=== PATIENT | male | born 1960 | race Caucasian/White ===

== ENCOUNTER 2016-06-27 09:19 | Observation (INO) | payer BC, OTHER ==
[2016-06-27 09:28] VITALS: BMI 25.7
--- NOTE | 2016-06-27 09:34 | PDOC ---
History of Present Illness - General Chief Complaint: Chest Pain Stated Complaint: CHEST PAIN, NUMBNESS/PAIN TO LT ARM Time Seen by Provider: 06/27/16 09:31 History Source: Patient Exam Limitations: No Limitations - History of Present Illness Initial Comments: 06/27/16 09:48 Patient is a 55 year old male cocaine user (last night), 1PPD smoker who presents to ED with chest pain. Patient states he has had 3-4 episodes of burning substernal chest pain over last week. He woke up this morning with 6/10 substernal burning pain, which now started radiating to his left arm. The pain usually lasts 45minutes to 1 hour and dissipates on its own. He states the pain is not preceded by exertion or increased physical activity. He states chest pain is usually accompanied by burping, gas and a nonproductive cough. Denies shortness of breath, abdominal pain, syncope, palpitations. Past History - Travel Traveled outside of the country in the last 30 days: No Close contact w/someone who was outside of country & ill: No - Past Medical History Allergies/Adverse Reactions: Allergies Allergy/AdvReac Type Severity Reaction Status Date / Time shellfish derived AdvReac Difficulty Verified 06/27/16 09:22 Breathing Home Medications: Ambulatory Orders NK [No Known Home Medication] 06/27/16 Other medical history: DENIES. - Family Disease History Family Disease History: Heart Disease: Father (Multiple men with DE history) - Psycho/Social/Smoking Cessation Hx Suicidal Ideation: No Smoking History: Current every day smoker Have you smoked in the past 12 months: Yes Number of Cigarettes Smoked Daily: 20 Information on smoking cessation initiated: No Hx Alcohol Use: Yes (heavy drinker "on weekends only") Drug/Substance Use Hx: Yes (cocaine (last used yesterday), denies IVDA) Substance Use Type: Cocaine Hx Substance Use Treatment: No Review of Systems - Review of Systems Able to Perform ROS?: Yes Is the patient limited Greenlandic proficient: No Constitutional: No: Chills, Fever, Loss of Appetite, Malaise HEENTM: No: Blurred Vision, Double Vision, Nose Congestion, Throat Pain Respiratory: Yes: Cough. No: Shortness of Breath, Productive cough Cardiac (ROS): Yes: Chest Pain, Chest Tightness. No: Irregular Heart Rate, Lightheadedness, Palpitations ABD/GI: No: Constipated, Diarrhea, Nausea, Vomiting, Abdominal cramping : No: Burning, Dysuria All Other Systems: Reviewed and Negative *Physical Exam - Vital Signs Last Vital Signs Temp Pulse Resp BP Pulse Ox 97.8 F 89 17 148/91 98 06/27/16 09:23 06/27/16 09:23 06/27/16 09:23 06/27/16 09:23 06/27/16 09:23 - Physical Exam General Appearance: Yes: Nourished, Appropriately Dressed HEENT: positive: EOMI, JABIER, Normal ENT Inspection, Pharynx Normal Neck: positive: Trachea midline, Normal Thyroid, Supple Respiratory/Chest: positive: Other (Diffuse end expiratory wheezes, no crackles noted). negative: Respiratory Distress, Accessory Muscle Use Cardiovascular: positive: Regular Rhythm, Regular Rate, S1, S2 Gastrointestinal/Abdominal: positive: Normal Bowel Sounds, Flat, Soft Musculoskeletal: positive: Normal Inspection Extremity: positive: Normal Inspection, Normal Range of Motion Integumentary: positive: Normal Color, Dry, Warm Neurologic: positive: senior manufacturing technician II-XII NML intact, Fully Oriented, Alert, Normal Mood/ Affect, Motor Strength 5/5 Heart Score/ECG Review - History History: Moderately suspicious - Electrocardiogram EKG: Normal - Age Age: 45-65 - Risk Factors Risk Factors Heart Score: Yes Hx Hypercholesterolemia, Yes Smoking History, Yes Positive family hx of cardiac disease Based on the list above the patient has:: >/=3 risk factors or Hx atherosclerotic disease - Troponin Troponin: </= normal limit - Score Heart Score - Total: 4 - ECG Impressions Normal ECG: Yes Comment:: 06/27/16 09:57 IMPRESSION: Normal sinus rhythm. 89bpm. QTc 435 ED Treatment Course - LABORATORY CBC & Chemistry Diagram: 06/27/16 10:20 06/27/16 10:20 Medical Decision Making - Medical Decision Making 06/27/16 09:57 Chest pain, need to r/o ACS. Patient HEART score is 4 (not including pending troponin) so will require admission/observation. Cardiac workup ordered including ECG, CXR, Troponins, Mag, lipid profile. Aspirin 162 chewable given. 06/27/16 11:02 First troponin negative. CXR without acute pathology. Will discuss case with hospitalist service as patient will require placement in telemetry observation for serial troponins & cardiac monitoring. 06/27/16 11:[address] in telemetry observation under admitting Dr Camargo. *DC/Admit/Observation/Transfer Diagnosis at time of Disposition: Chest pain, Cocaine abuse - Discharge Dispostion Admit: Yes
[2016-06-27] MEDS ORDERED: ASPIRIN 81 MG CHEWABLE TABLETS PO ONE (09:46)
[2016-06-27] MEDS ORDERED: ASPIRIN 81 MG CHEWABLE TABLETS ONE (10:04)
[2016-06-27 10:49] LABS: ALBUMIN 4.2 g/dl (3.4-5.0); ALK PHOS 85 U/L (45-117); ANION GAP 9 (8-16); BILIRUBIN,TOTAL 0.6 mg/dL (0.2-1.0); CALCIUM 9.1 mg/dL (8.5-10.1); CHOLESTEROL 185 mg/dL (50-200); CO2 26 mmol/L (21-32); CREATININE 0.9 mg/dL (0.7-1.3); GLUCOSE,RANDOM 95 mg/dL (74-106); LDL CHOLESTEROL (ONLY SJRH) 130 mg/dL (5-100); MAGNESIUM 2.5 mg/dL (1.8-2.4); SGOT/AST 22 U/L (15-37); SGPT/ALT 45 U/L (12-78); TROPONIN I < 0.02 ng/ml (0.00-0.05)
[2016-06-27 10:54] LABS: BASOPHIL 0.7 % (0-2.0); EOSINOPHIL 2.1 % (0-4.5); MCH 30.4 pg (25.7-33.7); MCHC 33.8 g/dl (32.0-35.9); MEAN CELL VOLUME 89.8 fl (80-96); MEAN PLT VOLUME 6.7 fl (7.5-11.1); NEUTROPHILS 64.4 % (42.8-82.8); PLATELET COUNT 234 K/MM3 (134-434); RDW 13.8 % (11.9-15.9); WHITE BLOOD COUNT 8.4 K/mm3 (4.0-10.0)
--- NOTE | 2016-06-27 10:57 | PDOC ---
Attending Attestation - Resident Resident Name: Rocco Norman - ED Attending Attestation I have performed the following: I have examined & evaluated the patient, The case was reviewed & discussed with the resident, I agree w/resident's findings & plan, Exceptions are as noted - HPI HPI: 55 yo M no PMH but history of smoking and cocaine use presents with chest pain. Pain is substernal, radiating to L arm at times, to R chest at other times. He last used cocaine last night, but states that the pain seems to occur independently of that. He denies SOB, leg swelling, N/V, sweating. Associated with sweating. - Physicial Exam PE: GENERAL: Awake, alert, and fully oriented, in no acute distress HEAD: No signs of trauma EYES: PERRLA, EOMI, sclera anicteric, conjunctiva clear ENT: Auricles normal inspection, hearing grossly normal, nares patent, oropharynx clear without exudates. Moist mucosa NECK: Normal ROM, supple, no lymphadenopathy, JVD, or masses LUNGS: Breath sounds equal, clear to auscultation bilaterally. No wheezes, and no crackles HEART: Regular rate and rhythm, normal S1 and S2, no murmurs, rubs or gallops ABDOMEN: Soft, nontender, normoactive bowel sounds. No guarding, no rebound. No masses EXTREMITIES: Normal range of motion, no edema. No clubbing or cyanosis. No cords, erythema, or tenderness NEUROLOGICAL: Cranial nerves II through XII grossly intact. Normal speech, normal gait SKIN: Warm, Dry, normal turgor, no rashes or lesions noted. - Medical Decision Making Pt with history of smoking, cocaine use, and family history of CAD, presenting with cp. Will require admission based on prior history and that he has had multiple episodes.
[2016-06-27 11:14] LABS: URINE MARIJUANA THC NEGATIVE ng/ml (CUTOFF=50)
[2016-06-27] MEDS ORDERED: PNEUMOC 13-VAL CONJ-DIP CRM/PF 0.5 ML DISP.SYRIN IM ONE (12:28)
[2016-06-27] MEDS ORDERED: ACETAMINOPHEN 325 MG TABLET (FP) PO PRN (13:15)
--- NOTE | 2016-06-27 13:18 | HP ---
[id number] old male with a history of 52.5 pack-year history of smoking and occasional cocaine use who presents to the ED complaining of one week of intermittent chest pain. The pain is substernal and also in his left arm, although he states that they are "not connected." The pain is associated with shortness of breath. It is burning in character and dull/pressure-like when it starts to subside. It is associated with burping/"gas". It tends to last for about 45 minutes at a time. It does not seem to be related to exertion, eating, or any other factor. ER course was notable for: (1) EKG: NSR at 89bpm (2) TNI <0.02 (3) CXR: no active pulmonary disease The patient reports a negative stress test 2 yrs ago. Recent Travel: None Smokin.5ppd x 35 yrs Alcohol: Occasional Drugs: Inhalational cocaine, last used last night Family History: Significant for father and paternal uncle with CAD/[place]/CABG in their early 50s Allergies shellfish derived Adverse Reaction (Verified 06/27/16 09:22) Difficulty Breathing HOME MEDICATIONS: Home Medications Medication Instructions Recorded NK [No Known Home Medication] 06/27/16 REVIEW OF SYSTEMS CONSTITUTIONAL: Absent: fever, chills, diaphoresis, generalized weakness, malaise, loss of appetite, weight change HEENT: Absent: rhinorrhea, nasal congestion, throat pain, throat swelling, difficulty swallowing, mouth swelling, ear pain, eye pain, visual changes CARDIOVASCULAR: See HPI RESPIRATORY: Dry cough, shortness of breath when chest pain occurs Absent: orthopnea, wheezing, stridor, hemoptysis GASTROINTESTINAL: Absent: abdominal pain, abdominal distension, nausea, vomiting, diarrhea, constipation, melena, hematochezia GENITOURINARY: Absent: dysuria, frequency, urgency, hesitancy, hematuria, flank pain, genital pain MUSCULOSKELETAL: Absent: myalgia, arthralgia, joint swelling, back pain, neck pain SKIN: Absent: rash, itching, pallor HEMATOLOGIC/IMMUNOLOGIC: Absent: easy bleeding, easy bruising, lymphadenopathy, frequent infections ENDOCRINE: Absent: unexplained weight gain, unexplained weight loss, heat intolerance, cold intolerance NEUROLOGIC: Absent: headache, focal weakness or paresthesias, dizziness, unsteady gait, seizure, mental status changes, bladder or bowel incontinence PSYCHIATRIC: Absent: anxiety, depression, suicidal or homicidal ideation, hallucinations. PHYSICAL EXAMINATION Vital Signs - 24 hr 06/27/16 06/27/16 12:04 12:46 Temperature 97.8 F 97.8 F Pulse Rate 89 70 Respiratory 16 18 Rate Blood Pressure 148/91 118/70 O2 Sat by Pulse 98 Oximetry (%) GENERAL: Awake, alert, and fully oriented, in no acute distress. HEAD: Normal with no signs of trauma. EYES: Pupils equal, round and reactive to light, extraocular movements intact, sclera anicteric, conjunctiva clear. No lid lag. EARS, NOSE, THROAT: Ears normal, nares patent, oropharynx clear without exudates. Moist mucous membranes. NECK: Normal range of motion, supple without lymphadenopathy, JVD, or masses. LUNGS: Breath sounds equal, clear to auscultation bilaterally. No wheezes, and no crackles. No accessory muscle use. HEART: Regular rate and rhythm, normal S1 and S2 without murmur, rub or gallop. ABDOMEN: Soft, nontender, not distended, normoactive bowel sounds, no guarding, no rebound, no masses. No hepatomegaly or splenomegaly. MUSCULOSKELETAL: Normal range of motion at all joints. No bony deformities or tenderness. No CVA tenderness. UPPER EXTREMITIES: 2+ pulses, warm, well-perfused. No cyanosis. No clubbing. Cap refill <2 seconds. No peripheral edema. LOWER EXTREMITIES: 2+ pulses, warm, well-perfused. No calf tenderness. No peripheral edema. NEUROLOGICAL: Cranial nerves II-XII intact. Normal speech. Normal gait. PSYCHIATRIC: Cooperative. Good eye contact. Appropriate mood and affect. SKIN: Warm, dry, normal turgor, no rashes or lesions noted. ASSESSMENT/PLAN: 55 year old male placed in observation for chest pain. Problem List - Problem (1) Chest pain Assessment/Plan: -Monitor on telemetry -Serial troponins to rule out WI -ASA 81mg daily -Echocardiogram -Cardiology consultation- anticipate stress testing -Dietary/exercise counseling for borderline ADL Code(s): R07.9 - CHEST PAIN, UNSPECIFIED Qualifiers: Chest pain type: unspecified Qualified Code(s): R07.9 - Chest pain, unspecified (2) Cocaine abuse Assessment/Plan: -Calcium channel anthony for possible vasospasm Code(s): F14.10 - COCAINE ABUSE, UNCOMPLICATED (3) Family history of premature coronary artery disease Assessment/Plan: -As above Code(s): Z82.49 - FAMILY HX OF ISCHEM HEART DIS AND OTH DIS OF THE CIRC SYS (4) Tobacco abuse Assessment/Plan: -Declines nicotine replacement therapy Code(s): Z72.0 - TOBACCO USE (5) DVT prophylaxis Assessment/Plan: -Moderate risk; Lovenox 40mg sq daily -Early ambulation Code(s): EOP0065 - Visit type - Emergency Visit Emergency Visit: Yes ED Registration Date: 06/27/16 Care time: The patient presented to the Emergency Department on the above date and was hospitalized for further evaluation of their emergent condition. - New Patient This patient is new to me today: Yes Date on this admission: 06/27/16 - Critical Care Critical Care patient: No
--- NOTE | 2016-06-27 13:26 | CON.CARD ---
Consult Consult Specialty:: Cardiology Referred by:: Hospitalist Medicine Reason for Consultation:: Chest pain - History of Present Illness Chief Complaint: Chest pain History of Present Illness: Patient is a 55 year old male cocaine user (last night with positive UDS), 1.5 PPD smoker who presents to ED with complaint of chest pain. Patient states he has had 3-4 episodes of burning substernal chest pain over last week. He woke up this morning with 6/10 substernal burning pain, which started radiating to his left arm. The pain usually lasts 45 minutes to 1 hour and dissipates on its own. He reports belching which did not relieve sxs, denies exertional component , associated dyspnea, near or true syncope, palpitations, orthopnea, PND or LE edema. - History Source History Provided By: Patient Limitations to Obtaining History: No Limitations - Alcohol/Substance Use Hx Alcohol Use: Yes (heavy drinker "on weekends only") - Smoking History Smoking history: Current every day smoker Have you smoked in the past 12 months: Yes Aproximately how many cigarettes per day: 20 Home Medications - Allergies Allergies/Adverse Reactions: Allergies Allergy/AdvReac Type Severity Reaction Status Date / Time shellfish derived AdvReac Difficulty Verified 06/27/16 09:22 Breathing - Home Medications Home Medications: Ambulatory Orders NK [No Known Home Medication] 06/27/16 Review of Systems - Review of Systems Cardiovascular: reports: Chest Pain Vital Signs: Vital Signs Temperature 97.8 F 06/27/16 12:46 Pulse Rate 70 06/27/16 12:46 Respiratory Rate 18 06/27/16 12:46 Blood Pressure 118/70 06/27/16 12:46 O2 Sat by Pulse Oximetry (%) 98 06/27/16 12:04 Constitutional: Yes: No Distress, Calm Neck: Yes: Supple Respiratory: Yes: Regular, CTA Bilaterally Gastrointestinal: Yes: Normal Bowel Sounds, Soft Cardiovascular: Yes: Regular Rate and Rhythm JVD: No Carotid Bruit: No Heart Sounds: Yes: S1, S2 Edema: No - Other Data Labs, Other Data: INR, PTT INR 1.00 (0.82-1.09) 06/27/16 10:20 Pending Ejection Fraction %: LVEF > or = 40 % Imaging - Results Chest X-ray: Report Reviewed (NAD) Problem List - Problems (1) Chest pain Code(s): R07.9 - CHEST PAIN, UNSPECIFIED Qualifiers: Chest pain type: unspecified Qualified Code(s): R07.9 - Chest pain, unspecified (2) Cocaine abuse Code(s): F14.10 - COCAINE ABUSE, UNCOMPLICATED (3) Family history of premature coronary artery disease Code(s): Z82.49 - FAMILY HX OF ISCHEM HEART DIS AND OTH DIS OF THE CIRC SYS (4) Tobacco abuse Code(s): Z72.0 - TOBACCO USE Assessment/Plan 06/27/2016 Echo: Normal biventricular size and fxn, mild TR, tr-mild MR 1. Chest pain syndrome 2. Cocaine and tobacco abuse 3. Family history of premature CAD P:1. Ruling out for HI, serial EKG 2. ASA 81 qd, Cardizem CD 120 qd 3. ETT once ruled out for HI 4. Abstinence from cocaine and tobacco abuse 5. Thank you for consultative opportunity
[2016-06-27] MEDS ORDERED: PNEUMOCOCCAL 23 VACCINE 0.5 ML VIAL IM ONE (16:00)
[2016-06-27] MEDS ORDERED: INFLUENZA VACCINE 45 MCG/0.5 ML (MDV 16-17) IM ONE (16:00)
[2016-06-28 07:51] LABS: BASOPHIL 1.2 % (0-2.0); EOSINOPHIL 4.1 % (0-4.5); MCH 30.8 pg (25.7-33.7); MCHC 33.9 g/dl (32.0-35.9); MEAN CELL VOLUME 90.8 fl (80-96); MEAN PLT VOLUME 6.8 fl (7.5-11.1); NEUTROPHILS 48.8 % (42.8-82.8); PLATELET COUNT 199 K/MM3 (134-434); WHITE BLOOD COUNT 6.3 K/mm3 (4.0-10.0)
[2016-06-28 08:22] LABS: ALBUMIN 3.5 g/dl (3.4-5.0); ANION GAP 7 (8-16); CALCIUM 8.9 mg/dL (8.5-10.1); CO2 28 mmol/L (21-32); GLUCOSE,RANDOM 95 mg/dL (74-106); MAGNESIUM 2.3 mg/dL (1.8-2.4)
[2016-06-28 08:35] LABS: ALK PHOS 78 U/L (45-117); BILIRUBIN,TOTAL 0.7 mg/dL (0.2-1.0); CREATININE 1.1 mg/dL (0.7-1.3); SGOT/AST 12 U/L (15-37); SGPT/ALT 35 U/L (12-78); THYROID STIMULATING HORMONE 0.91 uIU/ml (0.358-3.74); TOT PROT 6.3 g/dl (6.4-8.2); TROPONIN I < 0.02 ng/ml (0.00-0.05)
[2016-06-28 09:26] VITALS: BP 127/86; PULSE 68; TEMP 98
[2016-06-28] MEDS ORDERED: ENOXAPARIN NA (PORCINE) 40 MG/0.4 ML DISP.SYRIN SQ SCH (10:00)
[2016-06-28] MEDS ORDERED: ASPIRIN COATED 81 MG TABLET.EC PO SCH (10:00)
--- NOTE | 2016-06-28 12:51 | DS ---
Physical Exam: SUBJECTIVE: Patient seen and examined OBJECTIVE: Vital Signs Period Temp Pulse Resp BP Sys/Euceda Pulse Ox Last 24 Hr 97.5 F-98.2 F 57-74 18-18 105-127/58-86 98-100 PHYSICAL EXAM GENERAL: The patient is awake, alert, and fully oriented, in no acute distress. HEAD: Normal with no signs of trauma. EYES: PERRL, extraocular movements intact, sclera anicteric, conjunctiva clear. ENT: Ears normal, nares patent, oropharynx clear without exudates, moist mucous membranes. NECK: Trachea midline, full range of motion, supple. LUNGS: Breath sounds equal, clear to auscultation bilaterally, no wheezes, no crackles, no accessory muscle use. HEART: Regular rate and rhythm, S1, S2 without murmur, rub or gallop. ABDOMEN: Soft, nontender, nondistended, normoactive bowel sounds, no guarding, no rebound, no hepatosplenomegaly, EXTREMITIES: 2+ pulses, warm, well-perfused, no edema. NEUROLOGICAL: Cranial nerves II through XII grossly intact. Normal speech, gait not observed. PSYCH: Normal mood, normal affect. SKIN: Warm, dry, normal turgor, no rashes or lesions noted. LABS Laboratory Results - last 24 hr 06/28/16 06/28/16 06/28/16 05:55 05:55 05:55 WBC 6.3 RBC 4.76 Hgb 14.7 Hct 43.3 MCV 90.8 MCHC 33.9 RDW 14.0 Plt Count 199 MPV 6.8 L Neutrophils % 48.8 D Lymphocytes % 31.8 D Monocytes % 14.1 H Eosinophils % 4.1 D Basophils % 1.2 Sodium 144 Potassium 4.2 Chloride 109 H Carbon Dioxide 28 Anion Gap 7 L BUN 15 Creatinine 1.1 D Creat Clearance w eGFR > 60 Random Glucose 95 Hemoglobin A1c % 5.1 Calcium 8.9 Magnesium 2.3 Total Bilirubin 0.7 AST 12 L D ALT 35 D Alkaline Phosphatase 78 Creatine Kinase 60 Troponin I < 0.02 Total Protein 6.3 L Albumin 3.5 TSH 0.91 HOSPITAL COURSE: Date of Admission:06/27/16 Date of Discharge: 06/28/16 Discharge Summary Reason For Visit: CHEST PAIN,COCAINE ABUSE Current Active Problems Chest pain (Acute) Cocaine abuse (Acute) DVT prophylaxis (Acute) Family history of premature coronary artery disease (Acute) Tobacco abuse (Acute) - Instructions Referrals: Lynda Pratt [Primary Care Provider] - - Home Medications Comprehensive Discharge Medication List: Ambulatory Orders NK [No Known Home Medication] 06/27/16
--- NOTE | 2016-06-28 13:36 | DS ---
Physical Exam: SUBJECTIVE: Patient seen and examined Patient refuses to stay in the hospital, high risk patient. Denies any chest pain or palpitations. OBJECTIVE: Vital Signs Temperature 98 F 06/28/16 09:25 Pulse Rate 68 06/28/16 09:25 Respiratory Rate 18 06/28/16 09:25 Blood Pressure 127/86 06/28/16 09:25 O2 Sat by Pulse Oximetry (%) 98 06/28/16 09:53 PHYSICAL EXAM GENERAL:The patient is awake, alert, and fully oriented, in no acute distress. HEAD: Normal with no signs of trauma. EYES: PERRL, extraocular movements intact, sclera anicteric, conjunctiva clear. ENT: Ears normal, oropharynx clear without exudates, moist mucous membranes. NECK: Trachea midline, full range of motion, supple. LUNGS: Breath sounds equal, clear to auscultation bilaterally, no wheezes, no crackles, no accessory muscle use. HEART: Regular rate and rhythm, S1, S2 without murmur, rub or gallop. ABDOMEN: Soft, nontender, nondistended, normoactive bowel sounds, no guarding, no rebound, no masses. EXTREMITIES: 2+ pulses, warm, well-perfused, no edema. NEUROLOGICAL: Cranial nerves II through XII grossly intact. Normal speech. PSYCH: Normal mood, normal affect. SKIN: Warm, dry, normal turgor, no rashes or lesions noted. LABS Laboratory Results - last 24 hr 06/28/16 06/28/16 06/28/16 05:55 05:55 05:55 WBC 6.3 RBC 4.76 Hgb 14.7 Hct 43.3 MCV 90.8 MCHC 33.9 RDW 14.0 Plt Count 199 MPV 6.8 L Neutrophils % 48.8 D Lymphocytes % 31.8 D Monocytes % 14.1 H Eosinophils % 4.1 D Basophils % 1.2 Sodium 144 Potassium 4.2 Chloride 109 H Carbon Dioxide 28 Anion Gap 7 L BUN 15 Creatinine 1.1 D Creat Clearance w eGFR > 60 Random Glucose 95 Hemoglobin A1c % 5.1 Calcium 8.9 Magnesium 2.3 Total Bilirubin 0.7 AST 12 L D ALT 35 D Alkaline Phosphatase 78 Creatine Kinase 60 Troponin I < 0.02 Total Protein 6.3 L Albumin 3.5 TSH 0.91 HOSPITAL COURSE: Date of Admission:06/27/16 Date of Discharge: 06/28/16 Patient is a high risk patient , smokes 1.5pack cigarettes, cocaine, family fhx of cad with hi uncles and his father. Discussed with Dr.Toni Feliz, patient is a high risk and needs a stress test, patient does not want to stay , will sign against medical advice. Asked the patient to continue taking aspirin, abstinence from smoking cigarette and cocaine use. Patient signed against medical advice. 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 Explained all the risk , comatose, heart transplant even . Patient understands and signed AMA papers. Minutes to complete discharge: 35 Discharge Summary Reason For Visit: CHEST PAIN,COCAINE ABUSE Current Active Problems Chest pain (Acute) Cocaine abuse (Acute) DVT prophylaxis (Acute) Family history of premature coronary artery disease (Acute) Tobacco abuse (Acute) Condition: Guarded - Instructions Diet, Activity, Other Instructions: follow up with [facility] Friend for stress test needs to quit smoking and cocaine use Referrals: Juarez Feliz MD [Staff Physician] - Lynda Pratt [Primary Care Provider] - - Home Medications Comprehensive Discharge Medication List: Ambulatory Orders NK [No Known Home Medication] 06/27/16 This patient is new to me today: Yes Date on this admission: 06/28/16 Emergency Visit: Yes ED Registration Date: 06/27/16 Care time: The patient presented to the Emergency Department on the above date and was hospitalized for further evaluation of their emergent condition. Critical Care patient: No - Discharge Referral Referred to [facility] No
[2016-06-28 14:07] LABS: TROPONIN I < 0.02 ng/ml (0.00-0.05)
--- NOTE | 2016-06-28 16:54 | EKG ---
Test Reason : Blood Pressure : / mmHG Vent. Rate : 071 BPM Atrial Rate : 071 BPM P-R Int : 142 ms QRS Dur : 084 ms QT Int : 384 ms P-R-T Axes : 062 -12 027 degrees QTc Int : 417 ms NORMAL SINUS RHYTHM NORMAL ECG WHEN COMPARED WITH ECG OF 28-JUN-2016 08:47, NO SIGNIFICANT CHANGE WAS FOUND Confirmed by MILADYS SÁNCHEZ MD ([id number]) on 06/28/2016 4:54:09 PM Referred By: Zohra RABAGO Confirmed By:MILADYS SÁNCHEZ MD
--- NOTE | 2016-06-28 17:38 | EKG ---
Test Reason : Blood Pressure : / mmHG Vent. Rate : 066 BPM Atrial Rate : 066 BPM P-R Int : 128 ms QRS Dur : 084 ms QT Int : 396 ms P-R-T Axes : 038 001 033 degrees QTc Int : 415 ms NORMAL SINUS RHYTHM CANNOT RULE OUT ANTERIOR INFARCT , AGE UNDETERMINED ABNORMAL ECG WHEN COMPARED WITH ECG OF 27-JUN-2016 09:23, NO SIGNIFICANT CHANGE WAS FOUND Confirmed by MILADYS SÁNCHEZ MD ([id number]) on 06/28/2016 5:37:39 PM Referred By: QUETA Confirmed By:MILADYS SÁNCHEZ MD
--- NOTE | 2016-07-02 13:50 | EKG ---
Test Reason : Blood Pressure : / mmHG Vent. Rate : 089 BPM Atrial Rate : 089 BPM P-R Int : 146 ms QRS Dur : 080 ms QT Int : 358 ms P-R-T Axes : 065 008 041 degrees QTc Int : 435 ms POOR DATA QUALITY, INTERPRETATION MAY BE ADVERSELY AFFECTED NORMAL SINUS RHYTHM NORMAL ECG NO PREVIOUS ECGS AVAILABLE Confirmed by KAZ BECKMAN MD ([id number]) on 07/02/2016 1:50:23 PM Referred By: Confirmed By:KAZ BECKMAN MD
== END 2016-06-28 14:48 | disposition left against medical advice (07) ==
LOC: JER 09:19 → JERBED 11:05 → J4W 12:11
PROVIDERS: ADMIT Internal Medicine; ATTEND Internal Medicine
DX: R07.89 Other chest pain (principal); F14.10 Cocaine abuse, uncomplicated; F17.210 Nicotine dependence, cigarettes, uncomplicated
CPT/HCPCS: 36415; 71010-TC; 80053; 80061; 80307; 82550; 83036; 83721; 83735; 84443; 84484; 85025; 85610; 90732; 93005; 93010; 93306-TC; 99285-25; G0009; G0378; Q2037

== ENCOUNTER 2016-12-27 18:29 | Emergency (ER) | payer BC ==
[2016-12-27 18:35] VITALS: BP 147/92; PULSE 91; TEMP 99; BMI 27.1
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
[2016-12-27] MEDS ORDERED: IBUPROFEN 600 MG TABLET (FP) PO ONE ×2 (19:35→19:37)
[2016-12-27] MEDS ORDERED: DIPHTH,PERTUSS(ACELL),TET 0.5 ML DISP.SYRIN IM ONE (19:46)
== END 2016-12-27 20:00 | disposition home or self-care (01) ==
LOC: FER 18:29
PROC: 3E0234Z Introduction of Serum, Toxoid and Vaccine into Muscle, Percutaneous Approach (ICD-10-PCS; principal; 2016-12-27)
PROC: 2W3JX1Z Immobilization of Right Finger using Splint (ICD-10-PCS; 2016-12-27)
DX: S62.014A Nondisplaced fracture of distal pole of navicular [scaphoid] bone of right wrist, initial encounter for closed fracture (principal); W01.0XXA Fall on same level from slipping, tripping and stumbling without subsequent striking against object, initial encounter; Y93.89 Activity, other specified; S00.81XA Abrasion of other part of head, initial encounter; Y92.511 Restaurant or cafe as the place of occurrence of the external cause; Y99.0 Civilian activity done for income or pay; S00.83XA Contusion of other part of head, initial encounter
CPT/HCPCS: 73110-TC-RT; 73130-TC-RT; 90715; 99284-25

== ENCOUNTER 2016-12-31 13:34 | Day surgery (SDC) | payer BC ==
[2016-12-30 15:07] VITALS: BMI 27.1
[2016-12-31] MEDS ORDERED: oxyCODONE HCL 5 MG TABLET PO PRN (13:56)
[2016-12-31] MEDS ORDERED: ONDANSETRON 4 MG/2 ML VIAL IVPUSH PRN (13:56)
[2016-12-31] MEDS ORDERED: LACTATED RINGERS SOLUTION 1,000 ML IV SCH (14:00)
[2016-12-31] MEDS ORDERED: BUPIVACAINE HCL/PF 2.5 MG/ML - 30 ML VIAL IJ ONE (15:06)
[2016-12-31] MEDS ORDERED: PROPOFOL 20 ML ONE ×6 (16:03→16:48)
[2016-12-31] MEDS ORDERED: ceFAZolin SODIUM 1 GM VIAL ONE (16:17)
[2016-12-31] MEDS ORDERED: SUCCINYLCHOLINE CHLORIDE 200 MG/10 ML VIAL ONE (16:38)
[2016-12-31] MEDS ORDERED: BUPIVACAINE HCL/PF 0.25% (2.5MG/ML) 10 ML VIAL IJ ONE (16:59)
[2016-12-31 18:55] VITALS: BP 135/84; PULSE 75; TEMP 97.9
--- NOTE | 2017-01-01 09:26 | OP ---
DATE OF OPERATION: 12/31/2016 PREOPERATIVE DIAGNOSIS: Right scaphoid fracture. POSTOPERATIVE DIAGNOSIS: Right scaphoid fracture. PROCEDURE: Right scaphoid open reduction and internal fixation. SURGEON: Hans Alexander MD ANESTHESIA: General. COMPLICATIONS: None. ESTIMATED BLOOD LOSS: Minimal. [employer] SUPPORT SPECIALIST: LIZETH Clarke INDICATION FOR PROCEDURE: The patient is a 56-year-old male with the above finding, indicated for operative treatment. Risks, benefits, and alternatives were discussed with the patient at length. Proper informed consent was obtained. DESCRIPTION OF PROCEDURE: After proper identification of the patient and the correct operative site, the patient was brought to the operating room and placed supine on the operating table. All prominences were well padded. General anesthesia provided by the anesthesiologist adequate for procedure. Right upper extremity was prepped and draped in the usual sterile fashion. A well-padded tourniquet was placed as well as a sterile prep. Esmarch bandage was used to exsanguinate the right upper extremity. Tourniquet was inflated to 250 mmHg. Right upper extremity was found in a thumb finger trap. Using liver fluoroscopy and percutaneous entry, the distal pole of the scaphoid was identified, and a guidewire was placed in the distal pole, across the fracture site, into the proximal pole of the scaphoid in a central position. A small incision was then made over the guidewire, and the tissue was developed for repair. A reamer was placed over the guidewire, and an Acutrak II mini screw was placed over the guidewire, obtaining central purchase throughout the scaphoid, across the fracture site. A size 20 screw was used. This provided secure stable fixation and anatomic position of the scaphoid. Multiple x-rays were taken to confirm reduction and placement and sizing of hardware. Wound was irrigated with saline and repaired with a 5-0 nylon suture. Sterile dressings and a splint were placed. Patient was reversed from anesthesia and brought to recovery room in stable condition. He tolerated the procedure well. Seb Alejandra, the health education assistant, was integral throughout this procedure. Procedure could not have been performed without a skilled operative assessment. Geri TRENT/[id number]
== END 2016-12-31 18:15 | disposition home or self-care (01) ==
LOC: FASU 13:34
PROVIDERS: ATTEND Orthopaedic Surgery Hand Surgery
PROC: 0PSM04Z Reposition Right Carpal with Internal Fixation Device, Open Approach (ICD-10-PCS; principal; 2016-12-31 16:01)
DX: S62.024A Nondisplaced fracture of middle third of navicular [scaphoid] bone of right wrist, initial encounter for closed fracture (principal); X58.XXXA Exposure to other specified factors, initial encounter; Y93.9 Activity, unspecified; Y92.9 Unspecified place or not applicable
CPT/HCPCS: 73130-TC-RT; 94760

== ENCOUNTER 2017-12-31 09:48 | Day surgery (SDC) | payer OTHER ==
[2017-12-30 14:53] VITALS: BMI 27.8
[2017-12-31] MEDS ORDERED: LIDOCAINE HCL/PF 2% SDV 5ML VIAL ONE (10:14)
[2017-12-31] MEDS ORDERED: PROPOFOL 20 ML ONE ×3 (10:14)
--- NOTE | 2017-12-31 10:34 | PROC ---
Endoscopy Procedure Endoscopy procedure completed. Please see scanned procedure report.
[2017-12-31 10:59] VITALS: TEMP 97.7
[2017-12-31 11:48] VITALS: BP 107/69; PULSE 67
== END 2017-12-31 11:49 | disposition home or self-care (01) ==
LOC: JASU-ENDO 09:48
PROVIDERS: ATTEND Internal Medicine Gastroenterology
PROC: 0DJD8ZZ Inspection of Lower Intestinal Tract, Via Natural or Artificial Opening Endoscopic (ICD-10-PCS; principal; 2017-12-31 11:00)
DX: Z12.11 Encounter for screening for malignant neoplasm of colon (principal)

== ENCOUNTER 2018-04-24 03:44 | Emergency (ER) | payer OTHER ==
[2018-04-24 04:15] VITALS: BMI 27.1
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
[2018-04-24 04:50] LABS: BASO % 0.7 % (0-2.0); EOS % 1.8 % (0-4.5); HEMOGLOBIN 17.2 GM/dL (11.7-16.9); LYMPH % 30.3 % (8-40); MCH 31.2 pg (25.7-33.7); MCHC 35.2 g/dl (32.0-35.9); MEAN CELL VOLUME 88.5 fl (80-96); MEAN PLT VOLUME 6.8 fl (7.5-11.1); MONO % 8.9 % (3.8-10.2); NEUT % 58.3 % (42.8-82.8); PLATELET COUNT 352 K/MM3 (134-434); RBC 5.54 M/mm3 (4.00-5.60); RDW 13.9 % (11.9-15.9); WHITE BLOOD COUNT 15.5 K/mm3 (4.0-10.0)
[2018-04-24 05:04] LABS: INR 0.87 (0.83-1.09); PROTHROMBIN TIME (PATIENT) 10.3 SEC (9.7-13.0)
[2018-04-24 05:07] LABS: ACTIVATED PTT 23.4 SECONDS (25.2-36.5)
[2018-04-24 05:22] LABS: ALBUMIN 4.4 g/dl (3.4-5.0); ALK PHOS 204 U/L (45-117); ANION GAP 12 MMOL/L (8-16); BILIRUBIN,TOTAL 0.4 mg/dL (0.2-1); BLOOD UREA NITROGEN 13 mg/dL (7-18); CALCIUM 8.8 mg/dL (8.5-10.1); CHLORIDE 101 mmol/L (98-107); CO2 25 mmol/L (21-32); CREATININE 1.1 mg/dL (0.55-1.3); GLUCOSE,RANDOM 150 mg/dL (74-106); POTASSIUM 3.2 mmol/L (3.5-5.1); SGOT/AST 137 U/L (15-37); SGPT/ALT 185 U/L (13-61); SODIUM 137 mmol/L (136-145); TOT PROT 8.5 g/dl (6.4-8.2)
[2018-04-24] MEDS ORDERED: ACETAMINOPHEN 1000 MG/100 ML VIAL (NON FORMULARY) IVPB ONE (05:51)
[2018-04-24] MEDS ORDERED: ACETAMINOPHEN INJECTION 100 ML IVPB ONE (05:57)
[2018-04-24] MEDS ORDERED: MAGNESIUM SULF 50% (8.12 MEQ/2 ML-1 GM VIAL) IVPB ONE (07:15)
[2018-04-24] MEDS ORDERED: POTASSIUM CHLORIDE TABS 20 MEQ TABLET.ER (FP) PO ONE ×2 (07:15→07:27)
[2018-04-24 07:26] VITALS: TEMP 97.8
[2018-04-24] MEDS ORDERED: MAGNESIUM 1GM/D5W - 2 GM/200 ML IVPB IVPB ONE (07:28)
[2018-04-24] MEDS ORDERED: ONDANSETRON 4 MG/2 ML VIAL IVPUSH ONE (07:51)
[2018-04-24] MEDS ORDERED: ONDANSETRON 4 MG/2 ML VIAL ONE (07:57)
[2018-04-24 08:04] VITALS: PULSE 85
--- NOTE | 2018-04-24 08:38 | PDOC ---
*Physical Exam - Vital Signs Last Vital Signs Temp Pulse Resp BP Pulse Ox 97.8 F 85 21 H 122/79 89 L 04/24/18 07:25 04/24/18 08:03 04/24/18 08:03 04/24/18 08:03 04/24/18 08:03 ED Treatment Course - LABORATORY CBC & Chemistry Diagram: 04/24/18 04:25 04/24/18 04:25 - ADDITIONAL ORDERS Additional order review: Laboratory Results 04/24/18 04/24/18 04/24/18 04:25 04:25 04:25 PT with INR 10.30 INR 0.87 PTT (Actin FS) 23.4 L Sodium 137 Potassium 3.2 L Chloride 101 Carbon Dioxide 25 Anion Gap 12 BUN 13 Creatinine 1.1 Creat Clearance w eGFR > 60 Random Glucose 150 H Calcium 8.8 Total Bilirubin 0.4 AST 137 H ALT 185 H Alkaline Phosphatase 204 H Total Protein 8.5 H Albumin 4.4 Alcohol, Quantitative 246.3 H Blood Type A POSITIVE Antibody Screen Negative 04/24/18 04:25 RBC 5.54 MCV 88.5 MCHC 35.2 RDW 13.9 MPV 6.8 L Neutrophils % 58.3 Lymphocytes % 30.3 Monocytes % 8.9 Eosinophils % 1.8 Basophils % 0.7 - Medications Given in the ED: ED Medications Discontinued Medications Generic Name Dose Route Start Last Admin Trade Name Eleazar PRN Reason Stop Dose Admin Acetaminophen 1,000 mg 04/24/18 05:51 04/24/18 07:25 Ofirmev Injection - IVPB 04/24/18 05:52 Not Given ONCE ONE Magnesium Sulfate 2 gm 04/24/18 07:15 04/24/18 08:03 Magnesium Sulfate IVPB 04/24/18 07:16 2 gm ONCE ONE Administration Ondansetron HCl 4 mg 04/24/18 07:51 04/24/18 08:03 Zofran Injection IVPUSH 04/24/18 07:52 4 mg ONCE ONE Administration Potassium Chloride 40 meq 04/24/18 07:15 04/24/18 08:03 K-Dur - PO 04/24/18 07:16 40 meq ONCE ONE Administration Medical Decision Making - Medical Decision Making 04/24/18 08:37 spoke with Lu at [facility] who will call back with the accepting Doctor in OMFS and ER attending. [facility] will set up transport 04/24/18 10:[address] Cooper (senior ER attending) who states [facility] does not deal with sig traumas. [facility] trauma already denied pt 04/24/18 10:18 [facility] transfer center states they do not accept transfers for ENT/OMFS on the weekends. Spoke with Dr. Adamson who is this pts pcp and would like him transferred WIll contact [facility] Spoke with Dr. Rojas from ENT at [facility] who agrees to have the pt transferred to the emergency room to be seen. Dr. Rojas is the Accepting Provider for this pt *DC/Admit/Observation/Transfer Diagnosis at time of Disposition: Fracture of mastoid bone Qualifiers: Encounter type: initial encounter Fracture type: closed Qualified Code(s): S02.19XA - Other fracture of base of skull, initial encounter for closed fracture Clavicular fracture Qualifiers: Encounter type: initial encounter Clavicle location: unspecified part of clavicle Fracture type: closed Laterality: right - Discharge Dispostion Disposition: TRANSFER ACUTE CARE/OTHER HOSP Condition at time of disposition: Stable Decision to Admit order: No - Referrals - Patient Instructions - Post Discharge Activity
[2018-04-24 11:45] VITALS: BP 122/79
== END 2018-04-24 11:44 | disposition short-term general hospital (02) ==
LOC: JER 03:44
PROC: 3E033GC Introduction of Other Therapeutic Substance into Peripheral Vein, Percutaneous Approach (ICD-10-PCS; principal; 2018-04-24)
PROC: 3E033GC Introduction of Other Therapeutic Substance into Peripheral Vein, Percutaneous Approach (ICD-10-PCS; 2018-04-24)
PROC: 3E033NZ Introduction of Analgesics, Hypnotics, Sedatives into Peripheral Vein, Percutaneous Approach (ICD-10-PCS; 2018-04-24)
DX: S02.19XA Other fracture of base of skull, initial encounter for closed fracture (principal); S42.001A Fracture of unspecified part of right clavicle, initial encounter for closed fracture; W18.39XA Other fall on same level, initial encounter; Y93.89 Activity, other specified; Y92.480 Sidewalk as the place of occurrence of the external cause; Y99.8 Other external cause status
CPT/HCPCS: 36415; 70450-TC; 70486-TC; 71045-TC-FY; 72125-TC; 80053; 80307; 85025; 85610; 85730; 86850; 86900; 86901; 96374; 96375; 99285-25

== ENCOUNTER 2020-04-20 15:50 | Inpatient (IN) | payer OTHER ==
[2020-04-20 16:05] VITALS: BMI 26.6
[2020-04-20] MEDS ORDERED: ONDANSETRON 4 MG/2 ML VIAL IVPUSH ONE (17:18)
[2020-04-20] MEDS ORDERED: SODIUM CHLORIDE 0.9% 500 ML INFUS.BAG IV ONE (17:18)
[2020-04-20] MEDS ORDERED: morphine CARPU-JECT 4 MG/1 ML DISP.SYRIN IVPUSH ONE (17:18)
[2020-04-20] MEDS ORDERED: FAMOTIDINE 20 MG/50 ML IVPB 20 MG/50 ML MG IVPB ONE ×2 (17:19→17:25)
[2020-04-20] MEDS ORDERED: ONDANSETRON 4 MG/2 ML VIAL ONE (17:25)
[2020-04-20] MEDS ORDERED: morphine SULFATE 4 MG/ML VIAL ONE (17:25)
[2020-04-20 17:30] LABS: BASO % 0.4 % (0-2.0); EOS % 2.6 % (0-4.5); HEMATOCRIT 45.1 % (35.4-49); HEMOGLOBIN 15.2 GM/dL (11.7-16.9); LYMPH % 11.3 % (8-40); MCH 31.1 pg (25.7-33.7); MCHC 33.6 g/dl (32.0-35.9); MEAN CELL VOLUME 92.6 fl (80-96); MEAN PLT VOLUME 6.5 fl (7.5-11.1); NEUT % 79.7 % (42.8-82.8); PLATELET COUNT 241 K/MM3 (134-434); RBC 4.87 M/mm3 (4.00-5.60); RDW 14.5 % (11.9-15.9); WHITE BLOOD COUNT 8.7 K/mm3 (4.0-10.0)
[2020-04-20 17:37] LABS: INR 0.92 (0.83-1.09); PROTHROMBIN TIME (PATIENT) 11.4 SEC (9.7-13.0)
[2020-04-20 17:52] LABS: CHLORIDE 107 mmol/L (98-107); POTASSIUM 3.7 mmol/L (3.5-5.1); SODIUM 140 mmol/L (136-145)
[2020-04-20 17:55] LABS: ALBUMIN 4.1 g/dl (3.4-5.0); ANION GAP 5 MMOL/L (8-16); CALCIUM 9.5 mg/dL (8.5-10.1); CO2 28 mmol/L (21-32); GLUCOSE,RANDOM 128 mg/dL (74-106); LIPASE 119 U/L (73-393); MAGNESIUM 2.3 mg/dL (1.8-2.4)
[2020-04-20 17:58] LABS: CREATININE 1.1 mg/dL (0.55-1.3); SGOT/AST 16 U/L (15-37); SGPT/ALT 36 U/L (13-61)
[2020-04-20 18:00] LABS: BILIRUBIN,TOTAL 0.8 mg/dL (0.2-1); TOT PROT 7.2 g/dl (6.4-8.2)
[2020-04-20 18:01] LABS: ALK PHOS 89 U/L (45-117)
[2020-04-20] MEDS ORDERED: CEFTRIAXONE 1,000 MG in DEXTROSE 5%-WATER - 50 ML IVPB ONE (19:29)
[2020-04-20] MEDS ORDERED: HYDROmorphone HCL CARPU-JECT 2 MG/1 ML DISP.SYRIN IVPUSH ONE (19:36)
[2020-04-20] MEDS ORDERED: CEFTRIAXONE 1 GM/50 ML BAG ONE (19:37)
[2020-04-20] MEDS ORDERED: HYDROmorphone HCl 2 MG/ML VIAL ONE (20:00)
[2020-04-20] MEDS ORDERED: MORPHINE SULFATE 2 MG/ML VIAL IVPUSH PRN (21:19)
[2020-04-20] MEDS ORDERED: morphine SULFATE 4 MG/ML VIAL IVPUSH PRN (21:19)
[2020-04-20] MEDS ORDERED: ACETAMINOPHEN 1000 MG/100 ML VIAL (NON FORMULARY) IVPB PRN (21:19)
[2020-04-20] MEDS ORDERED: RANOLAZINE E.R. 500 MG TABLET (FP) ONE (22:40)
[2020-04-20] MEDS: RANOLAZINE E.R. 1,000 MG TABLET (FP) PO SCH (22:50)
[2020-04-20] MEDS: ATORVASTATIN CA 20 MG TABLET (FP) PO SCH (22:50)
[2020-04-20] MEDS: LABETALOL HCL 100 MG TABLET (FP) PO SCH (22:50)
[2020-04-21 08:02] LABS: BASO % 0.4 % (0-2.0); EOS % 3.4 % (0-4.5); HEMATOCRIT 36.7 % (35.4-49); HEMOGLOBIN 12.4 GM/dL (11.7-16.9); LYMPH % 27.5 % (8-40); MCHC 33.8 g/dl (32.0-35.9); MEAN CELL VOLUME 91.8 fl (80-96); MEAN PLT VOLUME 6.7 fl (7.5-11.1); MONO % 11.8 % (3.8-10.2); NEUT % 56.9 % (42.8-82.8); PLATELET COUNT 207 K/MM3 (134-434); RBC 3.99 M/mm3 (4.00-5.60); RDW 14.4 % (11.9-15.9); WHITE BLOOD COUNT 6.6 K/mm3 (4.0-10.0)
[2020-04-21 08:13] LABS: POTASSIUM 3.6 mmol/L (3.5-5.1)
[2020-04-21 08:18] LABS: CALCIUM 8.1 mg/dL (8.5-10.1); INR 1.05 (0.83-1.09); PROTHROMBIN TIME (PATIENT) 12.7 SEC (9.7-13.0)
[2020-04-21 08:19] LABS: ALBUMIN 3.2 g/dl (3.4-5.0); BLOOD UREA NITROGEN 9.7 mg/dL (7-18); MAGNESIUM 2.2 mg/dL (1.8-2.4)
[2020-04-21 08:20] LABS: PHOSPHOROUS 3.5 mg/dL (2.5-4.9)
[2020-04-21 08:22] LABS: BILIRUBIN,TOTAL 1.4 mg/dL (0.2-1); TOT PROT 5.8 g/dl (6.4-8.2)
[2020-04-21] MEDS ORDERED: RANOLAZINE E.R. 500 MG TABLET (FP) ONE ×2 (09:13→20:50)
[2020-04-21] MEDS ORDERED: cefTRIAXone SODIUM 1 GM VIAL ONE (09:14)
[2020-04-21] MEDS ORDERED: DEXTROSE 5%-WATER - 50 ML IVPB ONE (09:14)
[2020-04-21] MEDS: LABETALOL HCL 100 MG TABLET (FP) PO SCH ×2 (09:30→21:57)
[2020-04-21] MEDS: CEFTRIAXONE 1 GM in DEXTROSE 5%-WATER - 50 ML IVPB SCH (09:30)
[2020-04-21] MEDS: RANOLAZINE E.R. 1,000 MG TABLET (FP) PO SCH ×2 (09:31→21:57)
[2020-04-21] MEDS ORDERED: PT OWN MED DRAWER 7, Y5N ONE ×3 (09:36→20:50)
[2020-04-21] MEDS: ENOXAPARIN NA (PORCINE) 40 MG/0.4 ML DISP.SYRIN SQ SCH (09:37)
[2020-04-21] MEDS: BUDESONIDE/FORMETEROL FUMARATE 160/4.5 mcg INHALER IH SCH (11:22)
[2020-04-21] MEDS: TETRAHYDROZOLINE HCL EYE DROPS OU SCH (21:57)
[2020-04-21] MEDS: ATORVASTATIN CA 20 MG TABLET (FP) PO SCH (21:57)
[2020-04-22] MEDS ORDERED: cefTRIAXone SODIUM 1 GM VIAL ONE (10:28)
[2020-04-22] MEDS ORDERED: RANOLAZINE E.R. 500 MG TABLET (FP) ONE ×2 (10:28→21:06)
[2020-04-22] MEDS ORDERED: DEXTROSE 5%-WATER - 50 ML IVPB ONE (10:29)
[2020-04-22] MEDS: ENOXAPARIN NA (PORCINE) 40 MG/0.4 ML DISP.SYRIN SQ SCH (10:32)
[2020-04-22] MEDS: RANOLAZINE E.R. 1,000 MG TABLET (FP) PO SCH ×2 (10:32→21:18)
[2020-04-22] MEDS: CEFTRIAXONE 1 GM in DEXTROSE 5%-WATER - 50 ML IVPB SCH (10:32)
[2020-04-22] MEDS: NICOTINE 21 MG/24 HOURS TOPICAL PATCH TD SCH (10:33)
[2020-04-22] MEDS: BUDESONIDE/FORMETEROL FUMARATE 160/4.5 mcg INHALER IH SCH (10:33)
[2020-04-22] MEDS: LABETALOL HCL 100 MG TABLET (FP) PO SCH ×2 (10:33→21:18)
[2020-04-22] MEDS: TETRAHYDROZOLINE HCL EYE DROPS OU SCH ×2 (10:34→21:18)
[2020-04-22] MEDS: ATORVASTATIN CA 20 MG TABLET (FP) PO SCH (21:17)
[2020-04-23] MEDS ORDERED: DEXTROSE 5%-WATER - 50 ML IVPB ONE (08:29)
[2020-04-23] MEDS ORDERED: cefTRIAXone SODIUM 1 GM VIAL ONE (08:29)
[2020-04-23] MEDS: LABETALOL HCL 100 MG TABLET (FP) PO SCH ×3 (08:53→21:25)
[2020-04-23] MEDS: NICOTINE 21 MG/24 HOURS TOPICAL PATCH TD SCH (09:58)
[2020-04-23] MEDS: ENOXAPARIN NA (PORCINE) 40 MG/0.4 ML DISP.SYRIN SQ SCH (09:58)
[2020-04-23] MEDS: RANOLAZINE E.R. 1,000 MG TABLET (FP) PO SCH ×2 (09:59→21:25)
[2020-04-23] MEDS: BUDESONIDE/FORMETEROL FUMARATE 160/4.5 mcg INHALER IH SCH (10:00)
[2020-04-23] MEDS: TETRAHYDROZOLINE HCL EYE DROPS OU SCH ×2 (10:01→21:26)
[2020-04-23] MEDS: CEFTRIAXONE 1 GM in DEXTROSE 5%-WATER - 50 ML IVPB SCH (10:39)
[2020-04-23] MEDS ORDERED: PROPOFOL 20 ML ONE ×3 (11:23)
[2020-04-23] MEDS ORDERED: MIDAZOLAM HCL 2 MG/2 ML SINGLE DOSE VIAL ONE (11:23)
[2020-04-23] MEDS ORDERED: ROCURONIUM BROMIDE 50 MG/5 ML SYRINGE ONE (11:24)
[2020-04-23] MEDS ORDERED: SUCCINYLCHOLINE CHLORIDE 200 MG/10 ML SYRINGE ONE (11:24)
[2020-04-23] MEDS ORDERED: ceFAZolin SODIUM 1 GM VIAL IVPB ONE (12:08)
[2020-04-23] MEDS ORDERED: fentaNYL CITRATE 250 MCG/5 ML VIAL ONE (12:35)
[2020-04-23] MEDS ORDERED: BUPIVACAINE HCL/PF 0.5% (5 MG/ML) 30 ML VIAL IJ ONE (13:07)
[2020-04-23] MEDS ORDERED: GLYCOPYRROLATE 0.2 MG/1 ML VIAL ONE ×2 (13:13)
[2020-04-23] MEDS ORDERED: NEOSTIGMINE METHYLSULFATE 0.5 MG/ML - 10 ML MDV ONE (13:13)
[2020-04-23] MEDS ORDERED: ONDANSETRON 4 MG/2 ML VIAL IVPUSH PRN ×2 (13:37→13:58)
[2020-04-23] MEDS ORDERED: PROMETHAZINE HCL 25 MG/1 ML VIAL IVPB PRN ×2 (13:37→13:58)
[2020-04-23] MEDS ORDERED: oxyCODONE HCL 5 MG TABLET PO PRN ×2 (13:37→13:58)
[2020-04-23] MEDS ORDERED: IBUPROFEN 600 MG TABLET (FP) PO PRN (13:51)
[2020-04-23] MEDS: ACETAMINOPHEN 500 MG TABLET (FP) PO SCH (15:10)
[2020-04-23] MEDS ORDERED: RANOLAZINE E.R. 500 MG TABLET (FP) ONE (21:24)
[2020-04-23] MEDS ORDERED: ATORVASTATIN CA 20 MG TABLET (FP) PO SCH (22:00)
[2020-04-24] MEDS: ACETAMINOPHEN 500 MG TABLET (FP) PO SCH ×2 (05:04→07:28)
[2020-04-24 07:56] VITALS: PULSE 72; TEMP 97.7
[2020-04-24 08:14] LABS: POTASSIUM 3.7 mmol/L (3.5-5.1)
[2020-04-24 08:17] LABS: HEMATOCRIT 36.9 % (35.4-49); HEMOGLOBIN 12.9 GM/dL (11.7-16.9); MCH 32.2 pg (25.7-33.7); MCHC 34.9 g/dl (32.0-35.9); MEAN PLT VOLUME 7.2 fl (7.5-11.1); PLATELET COUNT 208 K/MM3 (134-434); RBC 4.01 M/mm3 (4.00-5.60); RDW 14.5 % (11.9-15.9); WHITE BLOOD COUNT 9.8 K/mm3 (4.0-10.0)
[2020-04-24 08:21] LABS: CALCIUM 8.5 mg/dL (8.5-10.1)
[2020-04-24 08:22] LABS: ALBUMIN 3.1 g/dl (3.4-5.0); BLOOD UREA NITROGEN 12.8 mg/dL (7-18)
[2020-04-24 08:26] LABS: BILIRUBIN,TOTAL 0.5 mg/dL (0.2-1)
[2020-04-24 08:27] LABS: TOT PROT 5.6 g/dl (6.4-8.2)
[2020-04-24 09:07] VITALS: BP 104/62
[2020-04-24] MEDS ORDERED: RANOLAZINE E.R. 500 MG TABLET (FP) ONE (09:26)
[2020-04-24] MEDS ORDERED: PT OWN MED DRAWER 7, Y5N ONE (09:27)
[2020-04-24] MEDS: LABETALOL HCL 100 MG TABLET (FP) PO SCH (09:37)
[2020-04-24] MEDS: RANOLAZINE E.R. 1,000 MG TABLET (FP) PO SCH (09:38)
[2020-04-24] MEDS: TETRAHYDROZOLINE HCL EYE DROPS OU SCH (09:39)
[2020-04-24] MEDS ORDERED: NICOTINE 21 MG/24 HOURS TOPICAL PATCH TD SCH (10:00)
[2020-04-24] MEDS ORDERED: CHLORTHALIDONE 25 MG TABLET PO SCH (10:00)
[2020-04-24] MEDS ORDERED: BUDESONIDE/FORMETEROL FUMARATE 160/4.5 mcg INHALER IH SCH (10:00)
[2020-04-24] MEDS ORDERED: ENOXAPARIN NA (PORCINE) 40 MG/0.4 ML DISP.SYRIN SQ SCH (10:00)
[2020-04-24] MEDS ORDERED: LORATADINE 10 MG TABLET PO SCH (10:00)
[2020-04-24] MEDS ORDERED: ASPIRIN 81 MG CHEWABLE TABLETS PO SCH (10:00)
== END 2020-04-24 12:25 | disposition home or self-care (01) | DRG 263 ==
LOC: JER 15:50 → JERBED 19:42 → J8W 21:54
PROVIDERS: ADMIT Family Medicine; ATTEND Family Medicine
PROC: 0FT44ZZ Resection of Gallbladder, Percutaneous Endoscopic Approach (ICD-10-PCS; principal; 2020-04-23 10:00)
DX: K80.00 Calculus of gallbladder with acute cholecystitis without obstruction (principal); I25.10 Atherosclerotic heart disease of native coronary artery without angina pectoris; I10 Essential (primary) hypertension; E78.5 Hyperlipidemia, unspecified; J44.9 Chronic obstructive pulmonary disease, unspecified; F17.210 Nicotine dependence, cigarettes, uncomplicated; K21.9 Gastro-esophageal reflux disease without esophagitis; F14.10 Cocaine abuse, uncomplicated; K45.8 Other specified abdominal hernia without obstruction or gangrene; Z95.5 Presence of coronary angioplasty implant and graft
CPT/HCPCS: 36415; 71046-TC-FY; 76705-TC; 80053; 83690; 83735; 84100; 84484; 85025; 85027; 85610; 85730; 86850; 86900; 86901; 88304-TC; 93005; 93010; 94760; 99285-25; C9803; U0003